=== PATIENT | male | born 1960 | race Caucasian/White ===

== ENCOUNTER 2018-05-06 09:15 | Inpatient (IN) | payer SELFPAY ==
[2018-05-06] MEDS ORDERED: fentaNYL 100 MCG/2 ML INJ IVP ONE (09:58)
--- NOTE | 2018-05-06 10:02 | EDPHY ---
H & P Smoking Status: Current every day smoker Time Seen by Provider: 05/06/18 09:38 HPI/ROS: Clinical Impression: Acute, displaced, angulated, impacted, comminuted, closed, intra-articular distal left femur fracture Assessment/Plan: 58-year-old homeless male presents to the emergency department with acute left knee pain after falling down 3 concrete steps today landing directly on his knee. The patient has intact neurovascular exam, no open wounds. He has obvious swelling and deformity to the knee. X-ray findings consistent with a closed, displaced, angulated, impacted, comminuted, intra-articular distal left femur fracture. No reports of hip or ankle pain and exam of these joints is unremarkable. Patient initially resistant to IV, orthopedic consultation, hospitalization and surgery. He met with Dr. Cory Fortune and agrees to stay in the hospital but is still resistant to surgery. Differential Dx: Differential includes but not limited to Acute fracture, dislocation, ligamentous injury ED Procedures: Procedure: Splint placement. A knee immobilizer splint was applied by pyrotechnics press tender. After application of the splint I returned and re-examined the patient. The splint was adequately immobilizing the joint and distal to the splint the patient's circulation and sensation was intact. ED Course: 10:00 a.m. patient has initially refused IV, orthopedic consultation, admission , and surgery. Despite my review of his x-ray findings with him, patient is insistent on this. He then met with Dr. Wenceslao Fortune. Patient has now agreed to stay in the hospital, would still like to talk to Orthopedics about surgery and is agreeable to pain medication. 10:40 a.m.: Case discussed with Martha from hospitalist service, will assign patient inpatient to Dr. Bolanos service. Still awaiting orthopedic call back. 10:45 a.m.: Case discussed with Dr. Cornejo. He will come to the ED to evaluate the patient. Patient agrees to knee immobilizer and admission. Still does not want surgery. Chief Complaint: Left knee pain HPI: This is a homeless 58-year-old male who presents to the emergency department with acute left knee pain after trying to push a 200 lb cart when it slipped and he fell down 3 concrete steps landing on his left knee. Patient is unable to ambulate. He reports no hip or ankle pain. No open wounds. No reports of numbness or loss of sensation to the leg. No prior leg surgery. He last ate yesterday. He denies drugs and alcohol. He has been sleeping outside. He did not take regular prescription medications and denies allergies. PMH: None reported Pertinent Past Surgical History: No prior orthopedic surgery Social History: Homeless, smoker ROS: All other systems negative Constitutional: No fever, no chills Musculoskeletal: Positive deformity + joint pain Skin: No rashes, color change or open wounds. Neurological: No sensory loss or weakness. Physical Exam: General Appearance: Alert, oriented, appropriate for age, cooperative, NAD, well hydrated, non-toxic appearing, VSS, no hypoxia. Neurological: Alert and oriented x 3, normal sensation. Skin: Warm, dry, no rashes, no nodules on palpation. Musculoskeletal: Significant swelling noted to left knee and distal femur. No open wound. Distal neurovascular exam intact. Range of motion not performed. No reproducible ankle or hip pain. MDM: Patient was seen independently by established practice protocols. Secondary supervising physician at time of evaluation was Dr. Fortune. Diagnosis: Displaced, angulated, impacted, closed, comminuted, intra-articular distal left femur fracture. New, requires workup Summary: See assessment and plan for summary of ED visit Clinical lab tests: ordered / reviewed. Independent visualization of images, tracing, or specimens yes. Discussed patient with another provider Dr. Fortune, who also saw and examined the patient, Dr. Cornejo with Orthopedics Risk of comlications, morbidity, mortality Presenting problem moderate Diagnostic procedures moderate Management Options moderate Patient Progress stable. (Mu Driver) Constitutional: Initial Vital Signs Temperature (C) 36.2 C 05/06/18 09:20 Heart Rate 53 L 05/06/18 09:20 Respiratory Rate 18 05/06/18 09:20 Blood Pressure 138/81 H 05/06/18 09:20 O2 Sat (%) 97 05/06/18 09:20 O2 Delivery Mode Room Air Allergies/Adverse Reactions: No Known Allergies Allergy (Verified 05/06/18 11:19) Home Medications: Medication Instructions Recorded Ibuprofen [Motrin (*)] 200 mg PO DAILY PRN 05/06/18 MDM/Departure - MDM Imaging Results: Imaging Impressions Knee X-Ray 05/06/18 09:22 Impression: Displaced, angulated, impacted and comminuted intra-articular fracture of the distal left femur. Medications Given: Acetaminophen (Tylenol) 1,000 mg PO Q8 [facility] Stop: 11/02/18 13:59 Last Admin: 05/06/18 13:34 Dose: 1,000 mg Cyclobenzaprine HCl (Flexeril) 10 mg PO TID LAUREN Stop: 11/02/18 15:59 Last Admin: 05/06/18 15:08 Dose: 10 mg Lorazepam (Ativan) 0.5 - 1 mg PO Q8HRS PRN PRN Reason: Anxiety, Able to Take PO Stop: 11/02/18 13:10 Last Admin: 05/06/18 15:09 Dose: 0.5 mg Oxycodone HCl (Oxycodone Ir) 5 - 10 mg PO Q3HRS PRN PRN Reason: Pain, Severe Able to Take PO Stop: 05/16/18 13:10 Last Admin: 05/06/18 15:08 Dose: 5 mg Discontinued Medications Fentanyl (Sublimaze) 50 mcg IVP EDNOW ONE Stop: 05/06/18 09:59 Last Admin: 05/06/18 10:11 Dose: 50 mcg Hydromorphone HCl (Dilaudid) 1 mg IVP EDNOW ONE Stop: 05/06/18 11:31 Last Admin: 05/06/18 11:38 Dose: 1 mg Hydromorphone HCl (Dilaudid) 0.2 - 0.4 mg IVP Q4HRS PRN PRN Reason: Pain, Severe Unable to Take PO Stop: 05/16/18 13:10 Last Admin: 05/06/18 13:39 Dose: 0.2 mg Lorazepam (Ativan Injection) 1 mg IVP EDNOW ONE Stop: 05/06/18 11:31 Last Admin: 05/06/18 11:38 Dose: 1 mg ED Course/Re-evaluation: Independent physician evaluation: I evaluated and participated in the management of the patient. I also evaluated the patient independently. My co-signature indicates that I have reviewed this chart and I agree with the findings and plan of care as documented. My personal H&P findings include: The patient presents the ED with left knee pain and swelling following a mechanical fall. The patient denies any headache, neck pain, chest pain, difficulty breathing or other traumatic complaints. Physical exam: General Appearance: Thin male, disheveled Head: Atraumatic Eyes: Pupils equal, round, reactive ENT, Mouth: No hemotympanum, no oral trauma Neck: Nontender, trachea midline Respiratory: No chest wall tender, no subcutaneous air, lungs clear bilaterally Cardiovascular: Regular rate and rhythm Abdomen: Abdomen is soft and nontender, pelvis stable Skin: No lacerations, No abrasion Back: No midline T/L/S pain Extremities: Significant soft tissue swelling and joint effusion noted in the left knee. Neurological: A&Ox3, normal motor function, normal sensory exam ED course: Patient's x-ray does confirm complicated distal femur fracture. The patient has been placed in a knee immobilizer. He received IV narcotic medications. The patient is willing to be admitted to the hospital for orthopedic consultation. He wants to discuss his treatment options with the orthopedic surgeon prior to going to surgery. (Tommie Fortune) - Depart Disposition: [facility] Inpatient Acute
[2018-05-06 10:16] LABS: PLATELET COUNT 189 10^3/uL (150-400)
[2018-05-06] MEDS ORDERED: HYDROmorphONE/DILAUDID 1 MG/ML INJ IVP PRN ×3 (10:56→16:33)
[2018-05-06] MEDS ORDERED: HYDROmorphONE/DILAUDID 1 MG/ML INJ IVP ONE (11:30)
[2018-05-06] MEDS ORDERED: LORazepam 2 MG/ML INJ IVP ONE (11:30)
--- NOTE | 2018-05-06 12:46 | GCON ---
ORTHOPEDIC CONSULTATION DATE OF CONSULTATION: 05/06/2018 REASON FOR CONSULTATION: Intra-articular distal femur fracture on the left knee. HISTORY OF PRESENT ILLNESS: The patient is a 58-year-old, homeless male who fell down about 3 steps earlier today and landed directly onto his left leg. He was brought to the emergency department, cristiano leighroby was refusing any sort of intervention or workup. He finally agreed to an x-ray, which did alon w a distal femur fracture with angulation. I was consulted and saw him down in the emergency room. PHYSICAL EXAM: GENERAL: He is alert and oriented x3. He does answer questions appropriately, altho ugh sometimes he has wandering thoughts. He is somewhat refusing any sort of intervention at this po int. EXTREMITIES: The left leg is flexed slightly. The compartments, both on the thigh and lower e xtremity. Compartments are soft. He has 1+ dorsalis pedis and posterior tibial pulses. He resists any sort of motion at the knee. Ankle does show intact sensation, both on the plantar and dorsal asp ect. 5/5 ankle dorsiflexion and plantar flexion. IMAGING: X-rays 4 views of the knee taken today at [facility] ER were reviewed. They do show an impacted i ntra-articular distal femoral fracture on the left. No other injuries are identified. ASSESSMENT: Left distal femoral fracture. PLAN: The patient and I spent 15 minutes of [id number]-ka-shpe time discussing treatment options. This ne eds to be surgically fixed. There is no great nonoperative options for this injury. He is resistant to any sort of intervention from a surgical standpoint. I did get him to agree to go into a splint to stabilize the fracture. He will get admitted to the hospital service and think about how he would like to proceed. He has agreed to meet with me again tomorrow morning and further discuss possible surgical intervention on this femur, so at this point, he can go ahead and have a diet. Will get him admitted to the hospitalist service, and I will talk with him again tomorrow about surgical interven tion on his femur. /[id number]/MODL
[2018-05-06] MEDS ORDERED: ONDANSETRON DISINTEGRATING 4 MG TAB PO PRN (13:11)
[2018-05-06] MEDS ORDERED: ONDANSETRON 4 MG/2 ML VIAL IVP PRN (13:11)
[2018-05-06] MEDS ORDERED: NS 1,000 ML IV SCH (13:15)
[2018-05-06] MEDS: ACETAMINOPHEN 500 MG TAB PO SCH ×2 (13:34→21:19)
[2018-05-06] MEDS: oxyCODONE IR 5 MG TAB PO PRN ×2 (13:34→15:08)
--- NOTE | 2018-05-06 13:47 | PDMN ---
Medical Necessity Medical necessity: [facility] [place] S740 femur fx 3 days( pend) : pt fell down 3 steps. sgy pend? - pt still deciding, surgical consult complete recommend sgy for this type of fx., displaced, angulated, impacted and comminuted intra- articular fracture of the distal L femur.
--- NOTE | 2018-05-06 14:59 | CPEKG ---
Test Reason : OPEN Blood Pressure : / mmHG Vent. Rate : 063 BPM Atrial Rate : 063 BPM P-R Int : 134 ms QRS Dur : 078 ms QT Int : 413 ms P-R-T Axes : 072 044 070 degrees QTc Int : 423 ms Sinus rhythm Probable left atrial enlargement Confirmed by Matt Babb ([id number]) on 05/06/2018 2:59:46 PM Referred By: Confirmed By:Matt Babb
[2018-05-06] MEDS: CYCLOBENZAPRINE 10 MG TAB PO SCH ×2 (15:08→21:19)
[2018-05-06] MEDS: LORazepam 0.5 MG TAB PO PRN (15:09)
--- NOTE | 2018-05-06 15:28 | GHP ---
DATE OF ADMISSION: 05/06/2018 HISTORY OF PRESENT ILLNESS: The patient is a 58-year-old gentleman with minimal past medical history who presents after mechanical fall and is found to have a distal femur comminuted intra-articular fr acture. When I speak to the patient, he was pushing a shopping cart. It fell down a stair, as he tried to sa ve it, he fell down, landing on his knee, developing excruciating pain. He has been homeless for a few years. Prior to that, he has lived in different places. It sounds li ke he was unable to live with his son any further, which is what led to this. He denies history of e xertional anginal symptoms, exertional chest pain or dyspnea. He does smoke cigarettes. He does not drink alcohol. He does have a history of poor dentition, which he has treated with on elderberry extract or leaves. He has not taken antibiotics. He has not had fever, chills, or jaw pain. In the emergency department, patient is agitated, wanting to leave. I did explain that his fracture needs surgical management and it likely to have a long slow progression to the mortality without repa ir. REVIEW OF SYSTEMS: Complete 10-point review of systems conducted negative, except as noted in the HP I. PAST MEDICAL HISTORY: None. SOCIAL HISTORY: Currently homeless. Previously worked in [employer] and other things. He is a smoke r and denies alcohol or drugs through the needle. FAMILY HISTORY: Reviewed and unremarkable. ALLERGIES: No known drug allergies. HOME MEDICATIONS: None. PHYSICAL EXAMINATION: VITAL SIGNS: Temp 36.2, blood pressure 131/81, pulse 53, breathing 18 times a minute, 97% on room air. GENERAL: In no acute distress. HEENT: Sclerae anicteric. Oropharynx cl ear. He has very poor dentition, but poor, but not rancid odor. NECK: Supple. No lymphadenopathy or JVD. LUNGS: Clear to auscultation bilaterally. HEART: S1, S2. ABDOMEN: Soft, nontender, nond istended. EXTREMITIES: Lower extremities are without edema. His left femur is tender. DIAGNOSTIC DATA: EKG interpreted by me shows sinus at 63 with normal axis and intervals. There is a pseudo ST elevation pattern in I and II without reciprocal changes. Otherwise, there are no ST or T -wave changes. There is no prior for comparison. Knee x-ray, interpreted by me shows comminuted intra-articular left distal femur fracture. Sodium 138, potassium 4.7, chloride 103, bicarb 26, BUN 16, creatinine 0.8, glucose 122. White count 8, hematocrit 45, platelets 189,000. On discussed case Dr. Robby Cornejo, as well as Dr. Tucker of Oral Surgery. ASSESSMENT/PLAN: A 58-year-old gentleman presents with fall, fracture, poor dentition. 1. Preoperative cardiac evaluation. The patient is greater than 4 METS of baseline. No active card iac conditions. His EKG I think is actually not abnormal, but on the I lead, it appears to be there is a [address]-elevation in non-contiguous leads. This is artifact, not ST elevation. 2. He may proceed to the operating room without further workup or intervention. 3. Intra-articular fracture. This needs surgical management with hardware. I discussed this with Andrea Cornejo. Will immobilize it while waiting for surgery. 4. Poor dentition. This represents a source for possible contamination of his soon-to-be installed orthopedic hardware. I will perform a CT of his face with surgery to evaluate for a jaw abscess. He will be seen by Oral Surgery. He does not appear to have an active bloodstream infection at this ti il. 5. Hyperglycemia. This is mild. 6. Prophylaxis. Low molecular heparin. High risk. DISPOSITION: Inpatient status. /[id number]/MODL
[2018-05-06] MEDS ORDERED: IOPAMIDOL (ISOVUE-300) 100 ML BTL ONE (15:32)
--- NOTE | 2018-05-06 19:59 | GCON ---
HISTORY OF PRESENT ILLNESS: Chris is a 58-year-old, homeless male, who fell down 3 steps earlier today and landed directly on his left leg. He was brought to the emergency department and was noted to have a left intra-articular distal femoral fracture. He was admitted to the hospital and is set for possible operative intervention by Orthopedics. The Internal Medicine doctors noted that the patient had multiple teeth with significant dental decay. Dr. Bolanos called me for a consultation regarding the patient's dentition and concern about its possible effect on his orthopedic injuries. PHYSICAL EXAMINATION: GENERAL: The patient is alert and oriented x3, however, he is difficult to have a conversation with because he has wandering thoughts and will not always answer questions clearly. HEAD AND NECK: Intraoral examination reveals poorly maintained generalized dentition with significant dental decay. The patient does have a small spicule of buccal bone protruding adjacent to tooth #10. Otherwise, there are no obvious signs of acute infection or abscess. The patient denies any acute pain associated with his teeth at this time. RADIOGRAPHS: CT scan demonstrates multiple periapical radiolucencies associated with his maxillary mandibular dentition. The radiologist also noted a possible subperiosteal abscess associated with tooth #10, but this is actually a spicule of the buccal bone which is protruding through the buccal mucosa and is not an abscess. ASSESSMENT AND PLAN: Chris is a 58-year-old, homeless male with poorly maintained dentition and a left distal femoral fracture. I do not believe that his dentition will affect the orthopedic repair of his fracture because there is no obvious acute abscess. The patient will eventually require extraction of his remaining dentition due to poor long-term oral care. The patient's orthopedic surgeon is Dr. Cornejo. If he has any questions, I would like him to contact me. My cell phone number is [phone]. The office phone number is [phone]. /[id number]/MODL MTDD
[2018-05-07] MEDS: ACETAMINOPHEN 500 MG TAB PO SCH ×3 (05:35→22:28)
--- NOTE | 2018-05-07 07:29 | SOAPPROG ---
LUDIN Progress Note Assessment/Plan: Assessment: Plan: 05/07/18 07:26 Lt intraartic distal femur fx appreciate oral surgery recs patient still refusing surgical intervention refusing knee immobilizer consider behavioral consult Subjective: pain better Objective: skin intact thigh comp soft 2+ dp/tp pulses Vital Signs Temp Pulse Resp BP Pulse Ox 37.2 C 85 16 115/74 94 05/06/18 23:51 05/06/18 23:51 05/06/18 23:51 05/06/18 23:51 05/06/18 23:51 05/06/18 05/07/18 05/08/18 05:59 05:59 05:59 Intake Total 530 Output Total 750 Balance -220 ICD10 Worksheet Patient Problems: Problems Problem Status Onset Femoral distal fracture Acute - ICD10 Problem Qualifiers (1) Femoral distal fracture Qualifiers: Encounter type: initial encounter Fracture type: closed Fracture morphology: other fracture Laterality: left Qualified Code(s): S72.492A - Other fracture of lower end of left femur, initial encounter for closed fracture
[2018-05-07] MEDS ORDERED: NICOTINE POLACRILEX 2 MG GUM B PRN (09:00)
--- NOTE | 2018-05-07 09:00 | HOSPPROG ---
Hospitalist Progress Note Assessment/Plan: 58 yo M w comminuted distal femur fracture and poor dentition refusing operative repair femur fracture: needs surgery knee immobilizer until then BH: refusing surgery he believes "it will heal on its own" and has distrust of surgery defiant when logic challenged as he a closed [place] of emotion based decision making and will not incorporate information that conflicts w his views this is unlikely to change w any degree of evaluation/discussion he does accept knee immobilizer, halfway care, which is definitely an inferior treatment option w risk of morbidity and mortality he denies this to be true will have nazanin valdivia see him, not optimistic it will be helpful i believe he has capacity to make decisions, they are just unwise decisions with regards to health outcomes poor dentition: ct w no abscess seen by oral surgery (appreciated) no contraindication to ortho hardware smoking: irate that he cannot smoke nicotine patch and gum proph: lmwh Subjective: angry. refusing surgery. case d/w dr lazo Objective: Vital Signs Temp Pulse Resp BP Pulse Ox 36.7 C 88 12 115/74 95 05/07/18 08:00 05/07/18 08:00 05/07/18 08:00 05/07/18 08:00 05/07/18 08:00 05/06/18 05/07/18 05/08/18 05:59 05:59 05:59 Intake Total 530 Output Total 750 Balance -220 - Physical Exam Constitutional: no apparent distress, appears nourished Eyes: PERRL, anicteric sclera Ears, Nose, Mouth, Throat: moist mucous membranes, hearing normal Cardiovascular: regular rate and rhythym, no murmur, rub, or gallop Respiratory: no respiratory distress, no rales or rhonchi Gastrointestinal: normoactive bowel sounds, soft, non-tender abdomen Genitourinary: no bladder fullness, No miller in urethra Skin: warm, normal color Musculoskeletal: No full muscle strength Neurologic: AAOx3 Psychiatric: No interacting appropriately ICD10 Worksheet Patient Problems: Problems Problem Status Onset Femoral distal fracture Acute
[2018-05-07] MEDS: oxyCODONE IR 5 MG TAB PO PRN ×3 (09:31→17:41)
[2018-05-07] MEDS: CYCLOBENZAPRINE 10 MG TAB PO SCH ×3 (09:32→22:28)
[2018-05-07] MEDS: ENOXAPARIN 40 MG/0.4 ML SYR SC SCH (09:34)
[2018-05-07] MEDS: NICOTINE 21 MG/24 HR PATCH TD SCH (09:38)
--- NOTE | 2018-05-07 15:54 | ASMTCMCOM ---
CM Note CM Note Notes: Pt who is homeless has femur fx after fall. Pt declining surgery which ortho recommends needs surgery. Pt currently self-pay, [employer] attempted to screen pt for Medicaid and he declined signing the paperwork. PATIENT SERVICES CLERK eval order in. documents pt has capacity to make decisions. [facility] consult with Shirley Lyons pending. Pt has no prior [facility] admissions. Pt reports he has no friends/family anywhere because "they are all killers." Pt reports his d/c plan is to heal for one week and then be able to be on crutches. Pt verbalizes his femur fx will heal on its own, he has healed himself before. Pt is really wanting to smoke a cigarette. Pt reports he has been living on the porch of a "fish store," has not been to the [facility]. Date Signed: 05/07/2018 03:53 PM Electronically Signed By:BOYD Morgan
[2018-05-08] MEDS: ACETAMINOPHEN 500 MG TAB PO SCH ×3 (05:27→22:51)
[2018-05-08] MEDS ORDERED: BISACODYL 10 MG SUPP PR PRN (08:27)
[2018-05-08] MEDS ORDERED: MAGNESIUM HYDROXIDE 30 ML UDCUP PO PRN (08:27)
[2018-05-08] MEDS ORDERED: LACTULOSE 20 GM/30 ML UDCUP PO PRN (08:27)
[2018-05-08] MEDS: oxyCODONE IR 5 MG TAB PO PRN ×4 (08:36→22:52)
[2018-05-08] MEDS: CYCLOBENZAPRINE 10 MG TAB PO SCH ×3 (08:36→22:51)
[2018-05-08] MEDS: ENOXAPARIN 40 MG/0.4 ML SYR SC SCH (08:36)
[2018-05-08] MEDS: NICOTINE 21 MG/24 HR PATCH TD SCH (10:38)
[2018-05-08] MEDS: SENNOSIDES/DOCUSATE SODIUM TAB PO SCH ×2 (12:55→22:51)
--- NOTE | 2018-05-08 15:44 | HOSPPROG ---
Hospitalist Progress Note Assessment/Plan: 58 yo M w comminuted distal femur fracture and poor dentition refusing operative repair femur fracture: knee immobilizer order, PT/OT, CM consulted BH: refusing surgery he believes "it will heal on its own" and has distrust of surgery defiant when logic challenged as he a closed koi of emotion based decision making and will not incorporate information that conflicts w his views this is unlikely to change w any degree of evaluation/discussion he does accept knee immobilizer, longterm care, which is definitely an inferior treatment option w risk of morbidity and mortality he denies this to be true i believe he has capacity to make decisions, they are just unwise decisions with regards to health outcomes poor dentition: ct w no abscess seen by oral surgery (appreciated) no contraindication to ortho hardware smoking: irate that he cannot smoke nicotine patch and gum proph: lmwh Subjective: Patient reports pain in L lower extremity Objective: Vital Signs Temp Pulse Resp BP Pulse Ox 36.2 C 103 H 14 109/78 88 L 05/08/18 08:00 05/08/18 13:01 05/08/18 13:01 05/08/18 13:01 05/08/18 13:01 05/07/18 05/08/18 05/09/18 05:59 05:59 05:59 Intake Total 530 1450 Output Total 750 325 Balance -220 1125 - Physical Exam Constitutional: unkempt Eyes: PERRL Ears, Nose, Mouth, Throat: moist mucous membranes Cardiovascular: regular rate and rhythym Respiratory: no respiratory distress Gastrointestinal: soft, non-tender abdomen Genitourinary: No miller in urethra Musculoskeletal: pain with ROM Neurologic: AAOx3 Psychiatric: interacting appropriately, poor insight, poor judgement ICD10 Worksheet Patient Problems: Problems Problem Status Onset Femoral distal fracture Acute
[2018-05-08] MEDS: LORazepam 0.5 MG TAB PO PRN (17:15)
[2018-05-09] MEDS: ACETAMINOPHEN 500 MG TAB PO SCH ×3 (06:37→22:06)
[2018-05-09] MEDS: CYCLOBENZAPRINE 10 MG TAB PO SCH ×3 (09:06→22:06)
[2018-05-09] MEDS: ENOXAPARIN 40 MG/0.4 ML SYR SC SCH ×2 (09:06→11:10)
[2018-05-09] MEDS: oxyCODONE IR 5 MG TAB PO PRN ×4 (09:07→22:06)
[2018-05-09] MEDS: NICOTINE 21 MG/24 HR PATCH TD SCH (10:12)
[2018-05-09] MEDS: SENNOSIDES/DOCUSATE SODIUM TAB PO SCH ×2 (10:21→22:05)
--- NOTE | 2018-05-09 13:06 | HOSPPROG ---
Hospitalist Progress Note Assessment/Plan: 58 yo M w comminuted distal femur fracture and poor dentition refusing operative repair femur fracture: knee immobilizer order, PT/OT, CM consulted BH: refusing surgery he believes "it will heal on its own" and has distrust of surgery defiant when logic challenged as he a closed [place] of emotion based decision making and will not incorporate information that conflicts w his views this is unlikely to change w any degree of evaluation/discussion he does accept knee immobilizer, long-term care, which is definitely an inferior treatment option w risk of morbidity and mortality he denies this to be true i believe he has capacity to make decisions, they are just unwise decisions with regards to health outcomes Rediscussed with patient this morning and showed him XR again, he said he will reconsider this afternoon poor dentition: ct w no abscess seen by oral surgery (appreciated) no contraindication to ortho hardware smoking: irate that he cannot smoke nicotine patch and gum proph: lmwh, patient has been refusing Subjective: Patient reports pain in LLE this morning Objective: Vital Signs Temp Pulse Resp BP Pulse Ox 36.7 C 88 16 126/66 H 90 L 05/09/18 11:44 05/09/18 11:44 05/09/18 11:44 05/09/18 11:44 05/09/18 11:44 05/08/18 05/09/18 05/10/18 05:59 05:59 05:59 Intake Total 1450 500 550 Output Total 325 550 Balance 1125 -50 550 - Physical Exam Constitutional: no apparent distress, unkempt Eyes: PERRL Ears, Nose, Mouth, Throat: moist mucous membranes Cardiovascular: regular rate and rhythym Respiratory: no respiratory distress Gastrointestinal: soft, non-tender abdomen Genitourinary: no bladder tenderness Skin: warm Musculoskeletal: pain with ROM Neurologic: AAOx3 Psychiatric: poor insight, poor judgement ICD10 Worksheet Patient Problems: Problems Problem Status Onset Femoral distal fracture Acute
--- NOTE | 2018-05-09 14:18 | SOAPPROG ---
LUDIN Progress Note Assessment/Plan: Assessment: Plan: 05/07/18 07:26 Lt intraartic distal femur fx appreciate oral surgery recs patient still refusing surgical intervention refusing knee immobilizer consider behavioral consult 05/09/18 14:14 Distal femur fx I rec operative intervention, however patient refusing at this point. I explained to him that without surgery he will heal this most likely in a malunited position compromising the intermediate accountant function of his knee and most likely making it difficult for him to walk in the future. He verbalizes that he understands this but does not want surgery. Cont knee immobilizer to stabilize fx and prevent knee flexion contracture NWB at least 8 weeks based on f/u xrays Placement? Subjective: pain better in immobilizer still does not want surgical intervention Objective: wearing immobilizer, fitting appropriately compartments soft 1+ dp/tp pulses 5/5 df/pf Vital Signs Temp Pulse Resp BP Pulse Ox 36.7 C 88 16 126/66 H 90 L 05/09/18 11:44 05/09/18 11:44 05/09/18 11:44 05/09/18 11:44 05/09/18 11:44 05/08/18 05/09/18 05/10/18 05:59 05:59 05:59 Intake Total 1450 500 550 Output Total 325 550 Balance 1125 -50 550 ICD10 Worksheet Patient Problems: Problems Problem Status Onset Femoral distal fracture Acute - ICD10 Problem Qualifiers (1) Femoral distal fracture Qualifiers: Encounter type: initial encounter Fracture type: closed Fracture morphology: other fracture Laterality: left Qualified Code(s): S72.492A - Other fracture of lower end of left femur, initial encounter for closed fracture
[2018-05-10] MEDS: NICOTINE 21 MG/24 HR PATCH TD SCH (10:29)
[2018-05-10] MEDS: SENNOSIDES/DOCUSATE SODIUM TAB PO SCH ×2 (10:29→21:56)
[2018-05-10] MEDS: CYCLOBENZAPRINE 10 MG TAB PO SCH ×3 (10:29→21:56)
[2018-05-10] MEDS: ENOXAPARIN 40 MG/0.4 ML SYR SC SCH (10:30)
[2018-05-10] MEDS: ACETAMINOPHEN 500 MG TAB PO SCH ×3 (10:42→21:56)
--- NOTE | 2018-05-10 11:17 | ASMTCMCOM ---
CM Note CM Note Notes: Late yesterday CARY Tapia met with pt and pt verbalized agreement to surgery Saturday. At the time CM left yesterday MARYELLEN Mayfield was helping to see when surgery could be scheduled. Pt did sign the Medicaid application forms, [employer] alerted by email and will picking tech Saturday. Today Hospitalist Ajith reports pt again is declining surgery. Pt will likely d/c to hotel respite if approved by CM management with wc and walker, Meals on Wheels and maybe HHC. WC with elevated leg rest still needs to be located. CM to follow. Date Signed: 05/10/2018 11:16 AM Electronically Signed By:BOYD Morgan
--- NOTE | 2018-05-10 11:20 | HOSPPROG ---
Hospitalist Progress Note Assessment/Plan: 58 yo M w comminuted distal femur fracture and poor dentition refusing operative repair femur fracture: knee immobilizer order, PT/OT, CM consulted BH: refusing surgery he believes "it will heal on its own" and has distrust of surgery defiant when logic challenged as he a closed bishop paiute of emotion based decision making and will not incorporate information that conflicts w his views this is unlikely to change w any degree of evaluation/discussion he does accept knee immobilizer, [facility] care, which is definitely an inferior treatment option w risk of morbidity and mortality he denies this to be true i believe he has capacity to make decisions, they are just unwise decisions with regards to health outcomes Rediscussed with patient this morning, continues to refuse Discussed case with Dr. Duke, psychiatry yesterday, she recommends integrative and spiritual care consults poor dentition: ct w no abscess seen by oral surgery (appreciated) no contraindication to ortho hardware smoking: irate that he cannot smoke nicotine patch and gum proph: lmwh, patient has been refusing Dispo: CM working on possible placement Subjective: Discussed with patient about risks and benefits of surgery this morning, he continues to refuse intervention at this time Objective: Vital Signs Temp Pulse Resp BP Pulse Ox 36.3 C 94 16 111/70 94 05/10/18 07:52 05/10/18 07:52 05/10/18 07:52 05/10/18 07:52 05/10/18 07:52 05/09/18 05/10/18 05/11/18 05:59 05:59 05:59 Intake Total 500 1250 Output Total 550 1350 Balance -50 -100 - Physical Exam Constitutional: unkempt Eyes: PERRL Ears, Nose, Mouth, Throat: moist mucous membranes Cardiovascular: regular rate and rhythym Respiratory: no respiratory distress Gastrointestinal: normoactive bowel sounds Genitourinary: No miller in urethra Skin: normal color Musculoskeletal: pain with ROM Neurologic: AAOx3 Psychiatric: poor insight, poor judgement ICD10 Worksheet Patient Problems: Problems Problem Status Onset Femoral distal fracture Acute
--- NOTE | 2018-05-10 12:26 | SOAPPROG ---
LUDIN Progress Note Assessment/Plan: Assessment: Plan: 05/07/18 07:26 Lt intraartic distal femur fx appreciate oral surgery recs patient still refusing surgical intervention refusing knee immobilizer consider behavioral consult 05/09/18 14:14 Distal femur fx I rec operative intervention, however patient refusing at this point. I explained to him that without surgery he will heal this most likely in a malunited position compromising the residential function of his knee and most likely making it difficult for him to walk in the future. He verbalizes that he understands this but does not want surgery. Cont knee immobilizer to stabilize fx and prevent knee flexion contracture NWB at least 8 weeks based on f/u xrays Placement? 05/10/18 12:21 I spent 15 mins of face to face time reviewing his decision to opt for non op treatment, including possible non union, malunion, terminal operations supervisor consequence of impaired mobility with LLE, he voices understanding of this decision. He is a very poor surgical candidate because of his inability to make and follow through with a decision. He is at high risk for post op complications especially infection due to his inability to follow through with recommendations My recommendation is to treat this fx non operatively in a knee immobilizer. Surgery has been cancelled for Saturday I am signing off on this patient at this time Subjective: Patient had agreed to surgery last night I scheduled him for surgery Saturday am he is now refusing Objective: wearing immobilizer 1+ dp/tp pulses compartments soft Vital Signs Temp Pulse Resp BP Pulse Ox 36.3 C 94 16 111/70 94 05/10/18 07:52 05/10/18 07:52 05/10/18 07:52 05/10/18 07:52 05/10/18 07:52 05/09/18 05/10/18 05/11/18 05:59 05:59 05:59 Intake Total 500 1250 Output Total 550 1350 Balance -50 -100 ICD10 Worksheet Patient Problems: Problems Problem Status Onset Femoral distal fracture Acute - ICD10 Problem Qualifiers (1) Femoral distal fracture Qualifiers: Encounter type: initial encounter Fracture type: closed Fracture morphology: other fracture Laterality: left Qualified Code(s): S72.492A - Other fracture of lower end of left femur, initial encounter for closed fracture
[2018-05-11] MEDS: ACETAMINOPHEN 500 MG TAB PO SCH ×2 (05:57→14:06)
[2018-05-11] MEDS: SENNOSIDES/DOCUSATE SODIUM TAB PO SCH (08:49)
[2018-05-11] MEDS: CYCLOBENZAPRINE 10 MG TAB PO SCH ×2 (08:50→17:00)
--- NOTE | 2018-05-11 12:04 | HOSPPROG ---
Hospitalist Progress Note Assessment/Plan: 58 yo M w comminuted distal femur fracture and poor dentition refusing operative repair femur fracture: knee immobilizer order, PT/OT, CM consulted, see below BH: was previously refusing surgery, patient has changed his mind as of this morning that he would like to proceed with surgical intervention, I will contact ortho this morning, NPO after midnight for possible OR in the AM poor dentition: ct w no abscess seen by oral surgery (appreciated) no contraindication to ortho hardware smoking: irate that he cannot smoke nicotine patch and gum proph: lmwh, patient has been refusing Dispo: Pending clinical course Subjective: Patient reports pain in LLE this AM Objective: Vital Signs Temp Pulse Resp BP Pulse Ox 37.1 C 85 16 96/67 L 94 05/11/18 08:00 05/11/18 08:00 05/11/18 08:00 05/11/18 08:00 05/11/18 08:00 05/10/18 05/11/18 05/12/18 05:59 05:59 05:59 Intake Total 1250 950 Output Total 1350 1450 Balance -100 -500 - Physical Exam Constitutional: no apparent distress, unkempt Eyes: PERRL Ears, Nose, Mouth, Throat: moist mucous membranes Cardiovascular: regular rate and rhythym Respiratory: no respiratory distress Gastrointestinal: soft, non-tender abdomen Genitourinary: No miller in urethra Skin: warm Musculoskeletal: pain with ROM Neurologic: AAOx3 Psychiatric: interacting appropriately ICD10 Worksheet Patient Problems: Problems Problem Status Onset Femoral distal fracture Acute
[2018-05-11] MEDS: ENOXAPARIN 40 MG/0.4 ML SYR SC SCH (12:19)
[2018-05-11] MEDS: NICOTINE 21 MG/24 HR PATCH TD SCH (12:19)
--- NOTE | 2018-05-11 15:21 | GCON ---
REFERRING PHYSICIAN: Oli Canseco DO HISTORY OF PRESENT ILLNESS: The patient is a pleasant 58-year-old gentleman who sustained a left dis constanza femur fracture. He was known to my partner, Dr. Robby Cornejo and had been planned for an operat ion earlier today. However, the patient has been somewhat difficult with the decision making and ref used an operation this morning. Since then, he has come around to feeling that he would benefit from operation. PHYSICAL EXAM: His left lower extremity shortened. Skin is grossly clean, dry, and intact. There is swelling about the knee. IMAGING: I reviewed the images. They demonstrate a telescoped and shortened distal femur fracture w ith an intercondylar split. IMPRESSION: Left distal femur fracture extending into the knee joint with substantial shortening. ASSESSMENT AND PLAN: I had a long discussion with the patient. I think the best recovery for him ul meccaately is going to be an open reduction and internal fixation. Obviously, the patient has a lot of social problems and will take that into consideration. He will have to be nonweightbearing on the l eft lower extremity for about 6 weeks. The patient has been n.p.o. since 8:00 this morning. We will move forward with operative planning for this evening. /[id number]/MODL
[2018-05-11] MEDS ORDERED: TRANEXAMIC ACID 1,000 MG in NS 100 ML IV ONE (18:59)
[2018-05-11] MEDS ORDERED: ceFAZolin 2 GM/DEXTROSE 100 ML IV ONE (19:00)
[2018-05-11] MEDS ORDERED: CEFAZOLIN 2 GM/DEXTROSE/100 ML BAG IV ONE (19:01)
[2018-05-11] MEDS ORDERED: MIDAZOLAM 2 MG/2 ML VIAL IVP ONE (19:12)
--- NOTE | 2018-05-11 19:14 | PDANEPAE ---
ANE History of Present Illness orif femur ANE Past Medical History - Cardiovascular History Hx Hypertension: No Hx Arrhythmias: No Hx Chest Pain: No Hx Coronary Artery / Peripheral Vascular Disease: No Hx CHF / Valvular Disease: No Hx Palpitations: No - Pulmonary History Hx COPD: No Hx Asthma/Reactive Airway Disease: No Hx Recent Upper Respiratory Infection: No Hx Oxygen in Use at Home: No Hx Sleep Apnea: No Sleep Apnea Screening Result - Last Documented: Negative - Neurologic History Hx Cerebrovascular Accident: No Hx Seizures: No Hx Dementia: No - Endocrine History Hx Diabetes: No Hypothyroid: No Hyperthyroid: No Obesity: no - Renal History Hx Renal Disorders: No - Liver History Hx Hepatic Disorders: No - Neurological & Psychiatric Hx Hx Neurological and Psychiatric Disorders: No ANE Review of Systems Review of Systems: - Exercise capacity Exercise capacity: >=4 METS ANE Patient History - Allergies Allergies/Adverse Reactions: No Known Allergies Allergy (Verified 05/06/18 11:19) - Home Medications Home medications: home medication list seen and reviewed Home Medications: Ibuprofen [Motrin (*)] 200 mg PO DAILY PRN 05/06/18 [Last Taken Unknown] - NPO status NPO Status: no food or drink >8 hours NPO Since - Liquids (Date): 05/11/18 NPO Since - Liquids (Time): 13:45 NPO Since - Solids (Date): 05/11/18 NPO Since - Solids (Time): 10:00 - Anes Hx Anes Hx: no prior problems Hx Anesthesia Complications (with details): no prior anesthetics - Smoking Hx Smoking Status: Current every day smoker ANE Labs/Vital Signs - Labs Result Diagrams: 05/06/18 10:03 05/06/18 10:03 - Vital Signs Blood Pressure: 126/70 Heart Rate: 89 Respiratory Rate: 16 O2 Sat (%): 95 Height: 175.26 cm Weight: 58.967 kg ANE Physical Exam - Airway Mallampati Score: Class 2 Mouth exam: poor dentition - Pulmonary Pulmonary: no respiratory distress - Cardiovascular Cardiovascular: regular rate and rhythym - ASA Status ASA Status: II ANE Anesthesia Plan Anesthesia Plan: general endotracheal anesthesia
[2018-05-11] MEDS ORDERED: SUCCINYLCHOLINE CHLORIDE 200 MG/10 ML SYR IVP ONE (19:16)
[2018-05-11] MEDS ORDERED: ONDANSETRON 4 MG/2 ML VIAL ONE (19:17)
[2018-05-11] MEDS ORDERED: KETOROLAC 30 MG/1 ML SDV ONE (19:17)
[2018-05-11] MEDS ORDERED: DEXAMETHASONE 4 MG/ML VIAL ONE (19:17)
[2018-05-11] MEDS ORDERED: LIDOCAINE 2% 5 ML SDV ONE (19:17)
[2018-05-11] MEDS ORDERED: ROCURONIUM 50 MG/5 ML VIAL ONE ×3 (19:17→21:54)
[2018-05-11] MEDS ORDERED: fentaNYL 100 MCG/2 ML INJ ONE (19:18)
[2018-05-11] MEDS ORDERED: PROPOFOL 200 MG/20 ML VIAL ONE (19:18)
[2018-05-11] MEDS ORDERED: VANCOMYCIN 1 GM VIAL ONE (19:32)
[2018-05-11] MEDS ORDERED: BUPIVACAINE 0.5% 30 ML SDV ONE (19:32)
[2018-05-11] MEDS ORDERED: BUPIVACAINE/EPI 0.5% 30 ML SDV ONE (19:46)
[2018-05-11] MEDS ORDERED: LABETALOL HCL 5 MG/ML 20 ML MDV ONE (19:54)
[2018-05-11] MEDS ORDERED: SUGAMMADEX SODIUM 200 MG/2 ML VIAL IVP ONE (22:22)
[2018-05-11] MEDS ORDERED: METOPROLOL TARTRATE 5 MG/5 ML INJ ONE (22:36)
[2018-05-11] MEDS ORDERED: HYDROmorphONE/DILAUDID 2 MG/ML INJ ONE (22:46)
--- NOTE | 2018-05-11 23:01 | POSTANESTH ---
Post Anesthetic Evaluation Cardiovascular Status: Normal, Stable Respiratory Status: Normal, Stable Level of Consciousness/Mental Status: Can Participate in Eval Pain Control: Adequate, Prn Tx Ordered Nausea/Vomiting Control: Adequate, Prn Tx Ordered Complications Possibly Related to Anesthesia: None Noted
[2018-05-11] MEDS ORDERED: NALOXONE HCL 0.4 MG/ML INJ IVP PRN (23:02)
[2018-05-11] MEDS ORDERED: NS 500 ML IV PRN (23:02)
[2018-05-11] MEDS ORDERED: ALBUTEROL 3 ML DEYVIAL IH PRN (23:02)
[2018-05-11] MEDS ORDERED: ONDANSETRON 4 MG/2 ML VIAL IVP PRN (23:02)
[2018-05-11] MEDS ORDERED: HYDROmorphONE/DILAUDID 2 MG/ML INJ IVP PRN (23:02)
[2018-05-11] MEDS ORDERED: LORazepam 2 MG/ML INJ ONE (23:24)
[2018-05-11] MEDS ORDERED: LORazepam 2 MG/ML INJ IV PRN (23:28)
[2018-05-12] MEDS: SENNOSIDES/DOCUSATE SODIUM TAB PO SCH ×3 (00:03→23:03)
[2018-05-12] MEDS: CYCLOBENZAPRINE 10 MG TAB PO SCH ×4 (00:04→21:36)
[2018-05-12] MEDS: ACETAMINOPHEN 500 MG TAB PO SCH ×4 (00:04→21:36)
[2018-05-12] MEDS: NICOTINE 21 MG/24 HR PATCH TD SCH (05:36)
[2018-05-12] MEDS: oxyCODONE IR 5 MG TAB PO PRN ×4 (09:40→21:37)
--- NOTE | 2018-05-12 11:03 | ASMTCMCOM ---
CM Note CM Note Notes: Pt had surgery for femur fx yesterday. Pt to be NWB for 6 weeks. Today pt is open to 30 day Medicaid SNF stay. Pt signed ULTC 100 and it was faxed to [facility]. [facility] Data alerted for LTC Medicaid cha. Referrals sent to SNFs in [employer]. Placement likely will be a challenge due to Medicaid pending status. CM to follow. Date Signed: 05/12/2018 11:02 AM Electronically Signed By:BOYD Morgan
--- NOTE | 2018-05-12 12:15 | HOSPPROG ---
Hospitalist Progress Note Assessment/Plan: 58 yo M w comminuted distal femur fracture and poor dentition refusing operative repair femur fracture: was originally refusing surgery, changed his mind yesterday, underwent ORIF on 05/11, PT/OT, pain medications poor dentition: ct w no abscess seen by oral surgery (appreciated) no contraindication to ortho hardware smoking: irate that he cannot smoke nicotine patch and gum proph: lmwh Dispo: Pending clinical course, CM working on SNF placement Subjective: Pateint reports pain in LE today Objective: Vital Signs Temp Pulse Resp BP Pulse Ox 36.8 C 103 H 12 112/67 99 05/12/18 12:06 05/12/18 12:06 05/12/18 12:06 05/12/18 12:06 05/12/18 12:06 05/11/18 05/12/18 05/13/18 05:59 05:59 05:59 Intake Total 950 1900 Output Total 1450 925 Balance -500 975 - Physical Exam Constitutional: no apparent distress, unkempt Eyes: PERRL Ears, Nose, Mouth, Throat: moist mucous membranes Cardiovascular: regular rate and rhythym Respiratory: no respiratory distress Gastrointestinal: soft, non-tender abdomen Skin: warm Musculoskeletal: pain with ROM Neurologic: AAOx3 Psychiatric: poor insight, poor judgement ICD10 Worksheet Patient Problems: Problems Problem Status Onset Femoral distal fracture Acute
--- NOTE | 2018-05-12 18:35 | GPROG ---
I touched base with Chris's nurse and I had a long discussion about his care. Overall, he is having s ome mental status issues, which seem to be the patient's baseline. I do think that he is still again cognizant and aware of the surgery as well as risks preceding it. He is otherwise doing quite well. He has progressed nonweightbearing in physical therapy. Moving forward, we will progress in the physical therapy, nonweightbearing. From my perspective, he can be discharged whenever he is cleared from the medicine service. I am happy to see the patient 2 weeks after the operation, and we will certainly do our best to keep in touch with the patient as thi s is going to be a challenge moving forward given his social situation. /[id number]/MODL
[2018-05-13] MEDS: oxyCODONE IR 5 MG TAB PO PRN ×6 (03:13→21:54)
[2018-05-13] MEDS: ACETAMINOPHEN 500 MG TAB PO SCH ×3 (06:13→21:54)
[2018-05-13] MEDS: HYDROmorphONE/DILAUDID 2 MG/ML INJ IVP PRN ×2 (08:42→15:52)
[2018-05-13] MEDS: CYCLOBENZAPRINE 10 MG TAB PO SCH ×3 (08:44→21:54)
[2018-05-13] MEDS: SENNOSIDES/DOCUSATE SODIUM TAB PO SCH ×2 (08:44→19:55)
[2018-05-13] MEDS: ENOXAPARIN 40 MG/0.4 ML SYR SC SCH (08:46)
[2018-05-13] MEDS: NICOTINE 21 MG/24 HR PATCH TD SCH (09:48)
--- NOTE | 2018-05-13 10:01 | HOSPPROG ---
Hospitalist Progress Note Objective: Vital Signs Temp Pulse Resp BP Pulse Ox 36.8 C 89 14 116/68 91 L 05/13/18 08:00 05/13/18 08:00 05/13/18 08:00 05/13/18 08:00 05/13/18 08:00 05/12/18 05/13/18 05/14/18 05:59 05:59 05:59 Intake Total 1900 700 Output Total 925 1200 Balance 975 -500 ICD10 Worksheet Patient Problems: Problems Problem Status Onset Femoral distal fracture Acute
--- NOTE | 2018-05-13 14:57 | ASMTCMCOM ---
CM Note CM Note Notes: Many SNF declines in [employer]. [facility], [facility] and [facility] have expressed interest, they all need to see if pt PASRR will trigger level 2 and a barrier could be pt lack of SNF d/c plan. [facility] should eval by close of business or early then we may know about the PASRR. CM to follow. Date Signed: 05/13/2018 02:56 PM Electronically Signed By:BOYD Morgan
--- NOTE | 2018-05-13 17:53 | SOAPPROG ---
SOAP Progress Note Assessment/Plan: Assessment: pt seen and evaluated at bedside today reports impoved pain control LLE leg lengths equal with same rotation dssg c/d/i, left in place. Plan: d/c when appropriate per medicine LLE NWB f/u with me in 2 wks for staple removal. dvt ppx per primary team. thank you for care coordination. pls don't hesitate to contact me with questions : [phone] 05/13/18 17:51 Objective: Vital Signs Temp Pulse Resp BP Pulse Ox 37.2 C 94 16 106/75 95 05/13/18 16:00 05/13/18 16:00 05/13/18 16:00 05/13/18 16:00 05/13/18 16:00 05/12/18 05/13/18 05/14/18 05:59 05:59 05:59 Intake Total 1900 700 Output Total 925 1200 600 Balance 975 -500 -600 ICD10 Worksheet Patient Problems: Problems Problem Status Onset Femoral distal fracture Acute
--- NOTE | 2018-05-13 19:56 | HOSPPROG ---
Hospitalist Progress Note Assessment/Plan: The patient is a 58-year-old male with PMH smoking, dental disease who was admitted for acute left femur fracture. This patient is new to me. Reviewed patient's chart/records for this visit. ASSESSMENT/PLAN: Acute left femur fracture, status post ORIF 05/11 -PT/OT/ISU. -NWB LLE -pending Rehab placement. Tobaco dependence -nicotine patch/gum. Dental caries -No abscess appreciated by oral surgeon, who had been consulted prior to surgery. -Recommend outpt FU for this, likely needs dental extractions. VTE prophylaxis: Lovenox Code Status: Full code Status: Inpatient for greater than 2 midnight stay. Disposition: [facility] with discharge anticipated by the end of this week. ____ SUBJECTIVE: Patient has no new complaints. +pain in left lower extremity. OBJECTIVE: Physical Exam: General: The patient is a male who is alert and in no acute distress. HEENT: normocephalic, extraocular movements intact, conjunctivae clear. Mucous membranes moist. Missing multiple teeth. Poor dentition noted. Neck: trachea midline, no visible masses. Resp: unlabored. Abd: Nondistended. Musculoskeletal: Normal muscle tone/bulk. Neuro: cranial nerves II XII grossly intact. Intact gross motor and sensory function. Psych: Appropriate mood and appropriate affect. Skin: Mild pallor. No petechiae. Heme/lymph: + 1 pitting peripheral edema at left lower extremity pretibial. No pitting edema right lower extremity. Labs/Imaging/Other Tests: Personally reviewed/interpreted. Objective: Vital Signs Temp Pulse Resp BP Pulse Ox 37.2 C 94 16 106/75 95 05/13/18 16:00 05/13/18 16:00 05/13/18 16:00 05/13/18 16:00 05/13/18 16:00 05/12/18 05/13/18 05/14/18 05:59 05:59 05:59 Intake Total 1900 700 Output Total 922 1200 900 Balance 975 -500 -900 - Time Spent With Patient Time Spent with Patient: greater than 35 minutes Time Spent with Patient: Greater than 35 minutes spent on this patients care, greater than 50% of time spent counseling, educating, and coordinating care regarding the above mentioned plan. ICD10 Worksheet Patient Problems: Problems Problem Status Onset Femoral distal fracture Acute
--- NOTE | 2018-05-13 23:18 | GOP ---
DATE OF OPERATION: 05/12/2018 SURGEON: Harpreet Cook MD VBA PROGRAMMER: Osman Mitchell, ANTONINOA, LSA. ANESTHESIA: General. PREOPERATIVE DIAGNOSIS: Left distal femur fracture. POSTOPERATIVE DIAGNOSIS: Left distal femur fracture. PROCEDURE PERFORMED: Left distal femur open reduction and internal fixation. FINDINGS: SPECIMENS: None. ESTIMATED BLOOD LOSS: 300 cc. INDICATIONS: The patient is a pleasant 58-year-old gentleman who sustained a fracture about a week a go. Of note, he is homeless and has a difficult social situation and has been refusing surgery for a bout a week. At this point he has come around to the idea of needing an operation as he understands he cannot walk on this and has seen the x-rays for the fracture. DESCRIPTION OF PROCEDURE: Pre-surgical, a surgical time-out was performed and all parties involved w ere in agreement on the surgery to be performed. Everyone was in agreement. The patient was then po sitioned on a fracture table. The left lower extremity was then tractioned to provide a closed reduc tion, which was imaged in multiple planes. Approach: A standard approach to the distal femur was then taken on the left side. An incision in l ine with the femur was made ending at the knee joint. The fascia was then incised in line with this. The vastus lateralis was then elevated medially and anteriorly using Mishra retractors. At this p oint, the fracture was then easily visualized. Using different rotation maneuvers, the fracture itse lf was lined up and reduced. A 4.5 mm Synthes distal femur locking plate was then affixed to the bon e. Distal radiographs demonstrated where the plate should lie, anterior to posterior as well as dist al to proximal. At this time 4.5 mm screws were placed in the nonlocking holes in the femoral shaft. At this time K-wires were then fired across the femoral condyles while manual reduction was obtaine d. Reduction of the intercondylar split was also confirmed based on distal radiographs. Two 4.0 mm x 75 mm cannulated screws were then fired across the condyles to reduce them and hold them together. Attention was then turned towards the 4.5 mm plate. At this time several conical and locking screws were then placed in the holes for the distal aspect of the plate. The fracture was determined to be well reduced. Of note, at one point, the distal locking holes were noted to pull out from the bone due to poor bone quality. At this time the decision was made to use a single cerclage wire around th e butterfly spike of the medial femoral condyle. This was then tensioned appropriately and cut. X-r ays were then taken. The surgical displacement was noted to be minimal, but again a bridge plating t echnique was used and so it was determined that the bone would fill in within these gaps. The area w as then copiously irrigated. Closure: Attention was then turned toward closure. #1 Vicryl sutures were used to repair the fascia in a running and simple fashion. 2-0 Monocryl sutures were used to repair the subdermal tissues, an d gloria were used to repair the skin. I was present for all critical portions of this case. Recovery: The patient will be returned to the recovery room in stable condition. He will be nonweig htbearing for 6 weeks and will be using a brace. DVT prophylaxis will be deferred to the primary tea m. IMPLANTS: DePuy Synthes 4.5 mm distal femoral locking plate, associated screws, cerclage wire x1. COMPLICATIONS: None. CONDITION: Stable to PACU. /[id number]/MODL
[2018-05-14] MEDS: oxyCODONE IR 5 MG TAB PO PRN ×5 (06:03→21:13)
[2018-05-14] MEDS: ACETAMINOPHEN 500 MG TAB PO SCH ×2 (06:03→14:37)
[2018-05-14] MEDS: CYCLOBENZAPRINE 10 MG TAB PO SCH ×3 (09:31→21:13)
[2018-05-14] MEDS: SENNOSIDES/DOCUSATE SODIUM TAB PO SCH ×2 (09:31→21:13)
[2018-05-14] MEDS: NICOTINE 21 MG/24 HR PATCH TD SCH ×2 (09:32→09:36)
[2018-05-14] MEDS: POLYETHYLENE GLYCOL 3350 17 GM PKT PO PRN (09:32)
[2018-05-14] MEDS: ENOXAPARIN 40 MG/0.4 ML SYR SC SCH (09:32)
--- NOTE | 2018-05-14 11:08 | ASMTCMCOM ---
CM Note CM Note Notes: Mandi Bonner with [facility] ([phone]) completed pt functional assessment, he is approved. Dwayne Fagan ([phone]) calls to report pt PASRR is triggered Level II, a PASRR salesperson burial needs will complete assessment sometime between and Saturday. Pt triggering level II will exclude him from some SNFs such as [facility]. Pt placement is complicated by Medicaid pending, lack of SNF d/c plan and now level II PASRR. Once PASRR is complete it can be sent to SNFs to see if any can accept. Date Signed: 05/14/2018 11:07 AM Electronically Signed By:BOYD Morgan
--- NOTE | 2018-05-14 23:26 | HOSPPROG ---
Hospitalist Progress Note Assessment/Plan: The patient is a 58-year-old male with PMH smoking, dental disease who was admitted for acute left femur fracture. ASSESSMENT/PLAN: Acute left femur fracture, status post ORIF 05/11 -PT/OT/ISU. -NWB LLE -pending Rehab placement. Tobaco dependence -nicotine patch/gum. Dental caries -No abscess appreciated by oral surgeon, who had been consulted prior to surgery. -Recommend outpt FU for this, likely needs dental extractions. VTE prophylaxis: Lovenox Code Status: Full code Status: Inpatient for greater than 2 midnight stay. [place] [facility] [place] by the end of this [place]. ____ SUBJECTIVE: Patient has no new complaints. +pain in left lower extremity. OBJECTIVE: Physical Exam: General: The patient is a male who is alert and in no acute distress. HEENT: normocephalic, extraocular movements intact, conjunctivae clear. Mucous membranes moist. Missing multiple teeth. Poor dentition noted. Neck: trachea midline, no visible masses. Resp: unlabored. Abd: Nondistended. Musculoskeletal: Normal muscle tone/bulk. Neuro: cranial nerves II XII grossly intact. Intact gross motor and sensory function. Psych: Appropriate mood and appropriate affect. Skin: Mild pallor. No petechiae. Heme/lymph: + 1 pitting peripheral edema at left lower extremity pretibial. No pitting edema right lower extremity. Labs/Imaging/Other Tests: Personally reviewed/interpreted. Objective: Vital Signs Temp Pulse Resp BP Pulse Ox 36.6 C 87 16 100/66 94 05/14/18 16:00 05/14/18 16:00 05/14/18 16:00 05/14/18 16:00 05/14/18 16:00 05/13/18 05/14/18 05/15/18 05:59 05:59 05:59 Intake Total 700 800 800 Output Total 9213 9710 163 Jzzlfqz -914 -1772 020 ICD10 Worksheet Patient Problems: Problems Problem Status Onset Femoral distal fracture Acute
[2018-05-15] MEDS: ACETAMINOPHEN 500 MG TAB PO SCH ×4 (00:42→21:11)
[2018-05-15] MEDS: oxyCODONE IR 5 MG TAB PO PRN ×2 (06:12→21:13)
[2018-05-15] MEDS: ENOXAPARIN 40 MG/0.4 ML SYR SC SCH (08:54)
[2018-05-15] MEDS: CYCLOBENZAPRINE 10 MG TAB PO SCH ×3 (08:55→21:10)
[2018-05-15] MEDS: SENNOSIDES/DOCUSATE SODIUM TAB PO SCH ×2 (08:55→21:11)
[2018-05-15] MEDS: NICOTINE 21 MG/24 HR PATCH TD SCH (11:09)
--- NOTE | 2018-05-15 16:48 | HOSPPROG ---
Hospitalist Progress Note Assessment/Plan: The patient is a 58-year-old male with PMH smoking, dental disease who was admitted for acute left femur fracture. ASSESSMENT/PLAN: Acute left femur fracture, status post ORIF 05/11 -PT/OT/ISU. -NWB LLE -pending Rehab placement. Tobaco dependence -nicotine patch/gum. Dental caries -No abscess appreciated by oral surgeon, who had been consulted prior to surgery. -Recommend outpt FU for this, likely needs dental extractions. VTE prophylaxis: Lovenox Code Status: Full code Status: Inpatient for greater than 2 midnight stay. Disposition: [facility] with discharge anticipated by the end of this week. ____ SUBJECTIVE: Patient has no new complaints Slowly getting better. OBJECTIVE: Physical Exam: General: The patient is a male who is alert and in no acute distress. HEENT: normocephalic, extraocular movements intact, conjunctivae clear. Mucous membranes moist. Missing multiple teeth. Poor dentition noted. Neck: trachea midline, no visible masses. Resp: unlabored. Abd: Nondistended. Musculoskeletal: Normal muscle tone/bulk. Neuro: cranial nerves II XII grossly intact. Intact gross motor and sensory function. Psych: Appropriate mood and appropriate affect. Skin: Mild pallor. No petechiae. Labs/Imaging/Other Tests: Personally reviewed/interpreted. Objective: Vital Signs Temp Pulse Resp BP Pulse Ox 36.7 C 87 17 106/51 L 94 05/15/18 15:43 05/15/18 15:43 05/15/18 15:43 05/15/18 15:43 05/15/18 15:43 05/14/18 05/15/18 05/16/18 05:59 05:59 05:59 Intake Total 800 1800 1240 Output Total 3075 1075 1150 Balance -2275 725 90 ICD10 Worksheet Patient Problems: Problems Problem Status Onset Femoral distal fracture Acute
--- NOTE | 2018-05-15 20:25 | GPROG ---
I saw and evaluated Chris this morning. Overall, he reports that his leg is doing much better than it was before. He has been able to ambulate, while maintaining nonweightbearing status on that left le g. PHYSICAL EXAM: The dressing is clean, dry, intact and left in place. Rotation and length are equal on the operative extremity. ASSESSMENT AND PLAN: Chris can be discharged at any point from my perspective, pending medical cleara nce, and physical therapy evaluation. Of note, I have requested that he be made nonweightbearing for the next 6 weeks, which obviously may affect his ultimate disposition. Please do not hesitate to co ntact me if any further questions arise. /[id number]/MODL
[2018-05-16] MEDS: ACETAMINOPHEN 500 MG TAB PO SCH ×3 (06:15→23:36)
[2018-05-16] MEDS: POLYETHYLENE GLYCOL 3350 17 GM PKT PO PRN (09:45)
[2018-05-16] MEDS: ENOXAPARIN 40 MG/0.4 ML SYR SC SCH (09:45)
[2018-05-16] MEDS: CYCLOBENZAPRINE 10 MG TAB PO SCH ×3 (09:46→23:35)
[2018-05-16] MEDS: SENNOSIDES/DOCUSATE SODIUM TAB PO SCH (09:46)
[2018-05-16] MEDS: NICOTINE 21 MG/24 HR PATCH TD SCH (09:54)
--- NOTE | 2018-05-16 10:04 | ASMTCMCOM ---
CM Note CM Note Notes: September is PASRR occupational therapist home based, she will be in this weekend to assess pt. CM to provide her a copy of [facility] [place] note. After PASRR complete then CM can see if SNF placement can be secured. Date Signed: 05/16/2018 10:03 AM Electronically Signed By:BOYD Morgan
--- NOTE | 2018-05-16 13:01 | ASMTCMCOM ---
CM Note CM Note Notes: Maximilian with [facility] reports pt financially denied by [employer]. Date Signed: 05/16/2018 01:00 PM Electronically Signed By:BOYD Morgan
--- NOTE | 2018-05-16 16:26 | HOSPPROG ---
Hospitalist Progress Note Assessment/Plan: The patient is a 58-year-old male with PMH smoking, dental disease who was admitted for acute left femur fracture. ASSESSMENT/PLAN: Acute left femur fracture, status post ORIF 05/11 -PT/OT/ISU. -NWB LLE x 6 weeks -pending SNF placement. Tobaco dependence -nicotine patch/gum. Dental caries -No abscess appreciated by oral surgeon, who had been consulted prior to surgery. -Recommend outpt FU for this, likely needs dental extractions. VTE prophylaxis: Lovenox Code Status: Full code Status: Inpatient for greater than 2 midnight stay. Disposition: Med [facility] [place] with discharge anticipated early next week. ____ SUBJECTIVE: Patient has no new complaints slowly getting better. OBJECTIVE: Physical Exam: General: The patient is a male who is alert and in no acute distress. HEENT: normocephalic, extraocular movements intact, conjunctivae clear. Mucous membranes moist. Missing multiple teeth. Poor dentition noted. Neck: trachea midline, no visible masses. Resp: unlabored. Abd: Nondistended. Musculoskeletal: Normal muscle tone/bulk. Neuro: cranial nerves II XII grossly intact. Intact gross motor and sensory function. Psych: Appropriate mood and appropriate affect. Skin: Mild pallor. No petechiae. Labs/Imaging/Other Tests: Personally reviewed/interpreted. Objective: Vital Signs Temp Pulse Resp BP Pulse Ox 36.7 C 81 14 103/51 L 94 05/16/18 07:11 05/16/18 07:11 05/16/18 07:11 05/16/18 07:11 05/16/18 07:11 05/15/18 05/16/18 05/17/18 05:59 05:59 05:59 Intake Total 1800 2190 Output Total 1075 1999 350 Balance 725 190 -350 ICD10 Worksheet Patient Problems: Problems Problem Status Onset Femoral distal fracture Acute
[2018-05-17] MEDS: SENNOSIDES/DOCUSATE SODIUM TAB PO SCH ×3 (04:17→21:48)
[2018-05-17] MEDS: POLYETHYLENE GLYCOL 3350 17 GM PKT PO PRN (05:59)
[2018-05-17] MEDS: ACETAMINOPHEN 500 MG TAB PO SCH ×5 (06:56→23:13)
[2018-05-17] MEDS: ENOXAPARIN 40 MG/0.4 ML SYR SC SCH (08:10)
[2018-05-17] MEDS: CYCLOBENZAPRINE 10 MG TAB PO SCH ×3 (08:12→21:48)
[2018-05-17] MEDS: NICOTINE 21 MG/24 HR PATCH TD SCH (08:12)
--- NOTE | 2018-05-17 16:17 | ASMTCMCOM ---
CM Note CM Note Notes: [place] came today to evaluate pt's triggered PASSR Level II. No email response from her yet. Pt admitted for surgery to left femur fracture will need short term rehab in a SNF. Medicaid is pending. Pt not likely to discharge before Saturday. D/C Plan: SNF pending PASSR evaluation Date Signed: 05/17/2018 04:16 PM Electronically Signed By:Suzan Richardson
--- NOTE | 2018-05-17 16:34 | HOSPPROG ---
Hospitalist Progress Note Assessment/Plan: The patient is a 58-year-old male with PMH smoking, dental disease who was admitted for acute left femur fracture. ASSESSMENT/PLAN: Acute left femur fracture, status post ORIF 05/11 -PT/OT/ISU. -NWB LLE x 6 weeks -pending SNF placement. Tobaco dependence -nicotine patch/gum. Dental caries -No abscess appreciated by oral surgeon, who had been consulted prior to surgery. -Recommend outpt FU for this, likely needs dental extractions. VTE prophylaxis: Lovenox Code Status: Full code Status: Inpatient for greater than 2 midnight stay. Disposition: [facility] with discharge anticipated early next week. ____ SUBJECTIVE: Patient has no new complaints slowly getting better. OBJECTIVE: Physical Exam: General: The patient is a male who is alert and in no acute distress. HEENT: normocephalic, extraocular movements intact, conjunctivae clear. Mucous membranes moist. Missing multiple teeth. Poor dentition noted. Neck: trachea midline, no visible masses. Resp: unlabored. Abd: Nondistended. Musculoskeletal: Normal muscle tone/bulk. Neuro: cranial nerves II XII grossly intact. Intact gross motor and sensory function. Psych: Appropriate mood and appropriate affect. Skin: Mild pallor. No petechiae. Labs/Imaging/Other Tests: Personally reviewed/interpreted. Objective: Vital Signs Temp Pulse Resp BP Pulse Ox 36.6 C 91 16 102/75 96 05/17/18 15:31 05/17/18 15:31 05/17/18 15:31 05/17/18 15:31 05/17/18 15:31 05/16/18 05/17/18 05/18/18 05:59 05:59 05:59 Intake Total 0 1500 Output Total 1999 1075 1500 Balance 190 425 -1500 ICD10 Worksheet Patient Problems: Problems Problem Status Onset Femoral distal fracture Acute
--- NOTE | 2018-05-17 20:05 | GPROG ---
I saw and evaluated the patient today during my rounds. Overall, he is in good spirits and he report s that his pain is much improved from before the operation. PHYSICAL EXAM: GENERAL: The dressing is clean, dry, intact, and left in place. EXTREMITIES: Of no te, the limb is swollen but not beyond what I would expect. Of note, the fracture itself was noted t o be intra-articular and this accounts for the joint effusion. NEUROLOGIC: He is grossly neurologic ally intact. ASSESSMENT/PLAN: The patient will be discharged at any point and should follow up with me in 2 weeks ' time. /[id number]/MODL
[2018-05-18] MEDS: ACETAMINOPHEN 500 MG TAB PO SCH ×3 (05:44→21:55)
[2018-05-18] MEDS: CYCLOBENZAPRINE 10 MG TAB PO SCH ×3 (08:30→21:55)
[2018-05-18] MEDS: ENOXAPARIN 40 MG/0.4 ML SYR SC SCH (08:31)
[2018-05-18] MEDS: NICOTINE 21 MG/24 HR PATCH TD SCH (08:31)
[2018-05-18] MEDS: SENNOSIDES/DOCUSATE SODIUM TAB PO SCH ×2 (08:31→21:55)
--- NOTE | 2018-05-18 08:37 | GPROG ---
I saw and evaluated this patient this morning. Overall, he does report improvement of pain day by reena roberts. PHYSICAL EXAMINATION: His leg has normal rotation and length to the contralateral side. ASSESSMENT/PLAN: The patient can be discharged from my perspective whenever he is ready to go and fo llow up with me in 2 weeks for staple removal. /[id number]/MODL
--- NOTE | 2018-05-18 16:04 | HOSPPROG ---
Hospitalist Progress Note Assessment/Plan: The patient is a 58-year-old male with PMH smoking, dental disease who was admitted for acute left femur fracture. ASSESSMENT/PLAN: Acute left femur fracture, status post ORIF 05/11 -PT/OT/ISU. -NWB LLE x 6 weeks. -pending SNF placement. -FU w/ Ortho in 2 weeks for staple removal. Tobaco dependence -nicotine patch/gum. Dental caries -No abscess appreciated by oral surgeon, who had been consulted prior to surgery. -Recommend outpt FU for this, likely needs dental extractions. VTE prophylaxis: Lovenox Code Status: Full code Status: Inpatient for greater than 2 midnight stay. Disposition: [facility] with discharge anticipated early this week. ____ SUBJECTIVE: Patient has no new complaints slowly getting better. OBJECTIVE: Physical Exam: General: The patient is a male who is alert and in no acute distress. HEENT: normocephalic, extraocular movements intact, conjunctivae clear. Mucous membranes moist. Missing multiple teeth. Poor dentition noted. Neck: trachea midline, no visible masses. Resp: unlabored. Abd: Nondistended. Musculoskeletal: Normal muscle tone/bulk. Neuro: cranial nerves II XII grossly intact. Intact gross motor and sensory function. Psych: Appropriate mood and appropriate affect. Skin: Mild pallor. No petechiae. Objective: Vital Signs Temp Pulse Resp BP Pulse Ox 36.8 C 87 17 117/64 97 05/18/18 07:34 05/18/18 07:34 05/18/18 07:34 05/18/18 07:34 05/18/18 07:34 05/17/18 05/18/18 05/19/18 05:59 05:59 05:59 Intake Total 5966 716 1977 Output Total 1075 2750 1000 Balance 425 -2300 0 ICD10 Worksheet Patient Problems: Problems Problem Status Onset Femoral distal fracture Acute
[2018-05-19] MEDS: ACETAMINOPHEN 500 MG TAB PO SCH (06:34)
[2018-05-19] MEDS: HYDROCODONE/APAP 5/325 TAB PO PRN ×3 (07:54→16:46)
[2018-05-19] MEDS: SENNOSIDES/DOCUSATE SODIUM TAB PO SCH ×2 (07:55→21:32)
[2018-05-19] MEDS: CYCLOBENZAPRINE 10 MG TAB PO SCH ×3 (07:55→21:32)
[2018-05-19] MEDS: ENOXAPARIN 40 MG/0.4 ML SYR SC SCH (10:14)
[2018-05-19] MEDS: NICOTINE 21 MG/24 HR PATCH TD SCH ×2 (10:14→18:26)
--- NOTE | 2018-05-19 15:13 | HOSPPROG ---
Hospitalist Progress Note Assessment/Plan: 58-year-old male with PMH smoking, dental disease who was admitted for acute left femur fracture s/p ORIF on 05/[address] Cook. This is my first encounter with the patient, chart reviewed. 1. Acute left femur fracture -PT/OT -NWB LLE x 6 weeks. -pending SNF - CM working on insurance/placement -FU w/ Ortho in 2 weeks for staple removal. 2. Tobaco dependence -nicotine patch/gum. 3. Dental caries -No abscess appreciated by oral surgeon, who had been consulted prior to surgery. -Recommend outpt FU for this, likely needs dental extractions. VTE prophylaxis: Lovenox Code Status: Full code Disposition: Remain inpatient, unsafe to discharge as unable to ambulate. Working on SNF placement. Subjective: Overall he feels like he is progressing. Pain mostly controlled. Moving bowels. Good appetite. Objective: Vital Signs Temp Pulse Resp BP Pulse Ox 36.4 C 80 16 95/65 L 96 05/19/18 07:47 05/19/18 07:47 05/19/18 07:47 05/19/18 07:47 05/19/18 07:47 05/18/18 05/19/18 05/20/18 05:59 05:59 05:59 Intake Total 450 1840 Output Total 2750 1900 350 Balance -2300 -60 -350 - Physical Exam Constitutional: no apparent distress, appears nourished, not in pain Eyes: PERRL, anicteric sclera, EOMI Ears, Nose, Mouth, Throat: moist mucous membranes, hearing normal, ears appear normal, no oral mucosal ulcers Cardiovascular: regular rate and rhythym, no murmur, rub, or gallop, No JVD, No edema Respiratory: no respiratory distress, no rales or rhonchi, clear to auscultation Gastrointestinal: normoactive bowel sounds, soft, non-tender abdomen, no palpable masses Genitourinary: no bladder fullness, no bladder tenderness, no renal bruits Skin: no rashes or abrasions, no fluctuance, no induration Musculoskeletal: other (left leg in brace) Neurologic: AAOx3, sensation intact bilaterally Psychiatric: interacting appropriately, not anxious, not encephalopathic, thought process linear ICD10 Worksheet Patient Problems: Problems Problem Status Onset Femoral distal fracture Acute
--- NOTE | 2018-05-19 15:24 | ASMTCMCOM ---
CM Note CM Note Notes: SNF placement still pending. Dawyne Fagan sent this CM pt's unsigned level II PASRR, this was attached to [employer] and forwarded to SNFs. Will provide SNFs time to review. CM to follow. Date Signed: 05/19/2018 03:24 PM Electronically Signed By:BOYD Morgan
[2018-05-19] MEDS: oxyCODONE IR 5 MG TAB PO PRN ×2 (18:21→21:37)
[2018-05-20] MEDS: oxyCODONE IR 5 MG TAB PO PRN ×4 (08:25→21:19)
[2018-05-20] MEDS: SENNOSIDES/DOCUSATE SODIUM TAB PO SCH ×2 (08:25→21:18)
[2018-05-20] MEDS: CYCLOBENZAPRINE 10 MG TAB PO SCH ×3 (08:25→21:19)
[2018-05-20] MEDS: NICOTINE 21 MG/24 HR PATCH TD SCH (08:26)
--- NOTE | 2018-05-20 09:02 | GPROG ---
I saw and evaluated the patient at the bedside this morning. Overall, he is doing quite well. He re ally has not taken anything for pain medication since the operation. The dressings are clean, dry, i ntact, and left in place. ASSESSMENT AND PLAN: At this point, it has been several days, and I will sign off. The patient does not need any more further acute orthopedic care. If there are any active issues, please do not hesi solitario to contact me. At this point, the patient is simply awaiting placement. Again, thank you for alma sam care of this patient. /[id number]/MODL
[2018-05-20] MEDS: ENOXAPARIN 40 MG/0.4 ML SYR SC SCH (10:20)
--- NOTE | 2018-05-20 15:03 | HOSPPROG ---
Hospitalist Progress Note Assessment/Plan: 58-year-old male with PMH smoking, dental disease who was admitted for acute left femur fracture s/p ORIF on 05/[address] Cook. 1. Acute left femur fracture -PT/OT -NWB LLE x 6 weeks. -pending SNF - CM working on insurance/placement -FU w/ Ortho in 2 weeks for staple removal. 2. Tobaco dependence -nicotine patch/gum. 3. Dental caries -No abscess appreciated by oral surgeon, who had been consulted prior to surgery. -Recommend outpt FU for this, likely needs dental extractions. VTE prophylaxis: Lovenox which he is refusing. I strongly advised him to use this in jose-op setting. Will order SCDs Code Status: Full code Disposition: Remain inpatient, unsafe to discharge as unable to ambulate. Working on SNF placement. Subjective: Continues to improve. Still using pain meds on occasion but controlling it. Having regular BMs, good appetite. No fevers Objective: Vital Signs Temp Pulse Resp BP Pulse Ox 36.7 C 92 16 121/72 H 92 05/19/18 23:16 05/19/18 23:16 05/19/18 23:16 05/19/18 23:16 05/19/18 23:16 05/19/18 05/20/18 05/21/18 05:59 05:59 05:59 Intake Total 1840 Output Total 1900 650 Balance -60 -650 - Physical Exam Constitutional: no apparent distress, appears nourished, not in pain Eyes: PERRL, anicteric sclera, EOMI Ears, Nose, Mouth, Throat: moist mucous membranes, hearing normal, ears appear normal, no oral mucosal ulcers Cardiovascular: regular rate and rhythym, no murmur, rub, or gallop, No edema Respiratory: no respiratory distress, no rales or rhonchi, clear to auscultation Gastrointestinal: normoactive bowel sounds, soft, non-tender abdomen, no palpable masses Genitourinary: no bladder fullness, no bladder tenderness, no renal bruits Skin: no rashes or abrasions, no fluctuance, no induration Musculoskeletal: other (left leg in brace) Neurologic: AAOx3, sensation intact bilaterally Psychiatric: interacting appropriately, not anxious, not encephalopathic, thought process linear ICD10 Worksheet Patient Problems: Problems Problem Status Onset Femoral distal fracture Acute
--- NOTE | 2018-05-20 15:59 | ASMTCMCOM ---
CM Note CM Note Notes: [facility] declined patient d/t Level II PASRR. Reached out to Fatimah at [facility] for further recommendations on facilities that may be able to accommodate. More facilities reviewing, CM will continue to follow for placement. Plan: SNF Date Signed: 05/20/2018 03:59 PM Electronically Signed By:Verenice Dao RN
[2018-05-20] MEDS: ACETAMINOPHEN 500 MG TAB PO PRN (16:32)
[2018-05-21] MEDS: ACETAMINOPHEN 500 MG TAB PO PRN (06:06)
[2018-05-21] MEDS: oxyCODONE IR 5 MG TAB PO PRN ×3 (06:06→18:41)
[2018-05-21] MEDS: CYCLOBENZAPRINE 10 MG TAB PO SCH (09:02)
[2018-05-21] MEDS: ENOXAPARIN 40 MG/0.4 ML SYR SC SCH (09:02)
[2018-05-21] MEDS: NICOTINE 21 MG/24 HR PATCH TD SCH (09:03)
[2018-05-21] MEDS: SENNOSIDES/DOCUSATE SODIUM TAB PO SCH ×2 (09:45→21:41)
--- NOTE | 2018-05-21 12:56 | HOSPPROG ---
Hospitalist Progress Note Assessment/Plan: 58-year-old male with PMH smoking, dental disease who was admitted for acute left femur fracture after mechanical fall. 1. Acute left femur fracture s/p ORIF on 05/[address] Cook -PT/OT -NWB LLE x 6 weeks. -pending SNF - CM working on insurance/placement. declined from [facility], CM contacting additional rehab centers -FU w/ Ortho in 2 weeks for staple removal -Switch flexeril from scheduled to PRN -Discontinue hydrocodone (not using), continue oxycodone 2. Tobaco dependence -nicotine patch/gum. 3. Dental caries -No abscess appreciated by oral surgeon, who had been consulted prior to surgery. -Recommend outpt FU for this, likely needs dental extractions. VTE prophylaxis: Lovenox which he is refusing. I strongly advised him to use this in jose-op setting. Ordered SCDs Code Status: Full code Disposition: Remain inpatient, unsafe to discharge as unable to ambulate. Working on SNF placement. Subjective: Continues to "heal". Pain controlled with oxycodone, not using hydrocodone. Informed him that he was declined from [facility]. Objective: Vital Signs Temp Pulse Resp BP Pulse Ox 36.8 C 82 16 107/63 94 05/21/18 08:00 05/21/18 08:00 05/21/18 08:00 05/21/18 08:00 05/21/18 08:00 05/20/18 05/21/18 05/22/18 05:59 05:59 05:59 Intake Total 2300 Output Total 650 1800 1200 Balance -650 500 -1200 - Physical Exam Constitutional: no apparent distress, appears nourished, not in pain Eyes: PERRL, anicteric sclera, EOMI Ears, Nose, Mouth, Throat: moist mucous membranes, hearing normal, ears appear normal, no oral mucosal ulcers Cardiovascular: regular rate and rhythym, no murmur, rub, or gallop, No edema Respiratory: no respiratory distress, no rales or rhonchi, clear to auscultation Gastrointestinal: normoactive bowel sounds, soft, non-tender abdomen, no palpable masses Genitourinary: no bladder fullness, no bladder tenderness, no renal bruits Skin: no rashes or abrasions, no fluctuance, no induration Musculoskeletal: other (left leg in brace) Neurologic: AAOx3, sensation intact bilaterally Psychiatric: interacting appropriately, not anxious, not encephalopathic, thought process linear ICD10 Worksheet Patient Problems: Problems Problem Status Onset Femoral distal fracture Acute
--- NOTE | 2018-05-21 13:18 | ASMTCMCOM ---
CM Note CM Note Notes: Still no SNF placement. Several phone calls made to pending SNFs, had to leave voicemails for admissions staff. Numerous new SNF referrals sent in Allscripts all over [place]. Date Signed: 05/21/2018 01:17 PM Electronically Signed By:BOYD Morgan
[2018-05-21] MEDS: CYCLOBENZAPRINE 10 MG TAB PO PRN (18:03)
[2018-05-22] MEDS: oxyCODONE IR 5 MG TAB PO PRN ×6 (02:55→23:55)
[2018-05-22] MEDS: NICOTINE 21 MG/24 HR PATCH TD SCH (07:57)
[2018-05-22] MEDS: ENOXAPARIN 40 MG/0.4 ML SYR SC SCH (07:57)
[2018-05-22] MEDS: SENNOSIDES/DOCUSATE SODIUM TAB PO SCH ×2 (07:57→20:09)
[2018-05-22] MEDS: ACETAMINOPHEN 500 MG TAB PO PRN ×2 (11:50→20:22)
--- NOTE | 2018-05-22 15:47 | HOSPPROG ---
Hospitalist Progress Note Assessment/Plan: The patient is a 58-year-old male with PMH smoking, dental disease who was admitted for acute left femur fracture. ASSESSMENT/PLAN: Acute left femur fracture, status post ORIF 05/11 -PT/OT/ISU. -NWB LLE x 6 weeks total (week 1 complete). -pending SNF placement. -FU w/ Ortho in 1 week for staple removal. Tobaco dependence -nicotine patch/gum. Dental caries -No abscess appreciated by oral surgeon, who had been consulted prior to surgery. -Recommend outpt FU for this, likely needs dental extractions. VTE prophylaxis: Lovenox Code Status: Full code Status: Inpatient for greater than 2 midnight stay. Disposition: [facility] with discharge anticipated tomorrow. ____ SUBJECTIVE: Patient has no new complaints slowly getting better. OBJECTIVE: Physical Exam: General: The patient is a male who is alert and in no acute distress. HEENT: normocephalic, extraocular movements intact, conjunctivae clear. Mucous membranes moist. Missing multiple teeth. Poor dentition noted. Neck: trachea midline, no visible masses. Resp: unlabored. Abd: Nondistended. Musculoskeletal: Normal muscle tone/bulk. Neuro: cranial nerves II XII grossly intact. Intact gross motor and sensory function. Psych: Appropriate mood and appropriate affect. Skin: Mild pallor. No petechiae. Objective: Vital Signs Temp Pulse Resp BP Pulse Ox 36.9 C 94 16 110/54 L 92 05/22/18 07:43 05/22/18 10:50 05/22/18 10:50 05/22/18 10:50 05/22/18 10:50 05/21/18 05/22/18 05/23/18 05:59 05:59 05:59 Intake Total 2300 1200 Output Total 1800 2050 1000 Balance 500 -850 -1000 ICD10 Worksheet Patient Problems: Problems Problem Status Onset Femoral distal fracture Acute
--- NOTE | 2018-05-22 17:08 | ASMTCMCOM ---
CM Note CM Note Notes: 05/22/2018 Case Management Note. Discussion with Delilah from [facility]. Delilah considering acceptance if Level II PASRR is changed to time limited. Phone call to Dwayne Fagan, PASRR coordinator [phone]. Dwayne called [facility] and will discuss with members of her team if a change is appropriate for PASRR. Iraida Larkin [phone] visited pt this morning. Left vm with Chaya to discuss placement. Faxed referrals to additional SNFs and added in [facility]. Pt friend who identifies himself as Dr. Kodak Gilliam psychologist [phone] requested conversation with case management. Kodak is unwilling to participate in care of pt at d/c. Kodak was homeless himself decades ago and befriended pt at the [facility] in [place]. Discussed w/PT. PT to evaluate pt tomorrow for discharge needs. Provided donated w/c to pt for likely d/c to alf. Attempted to discuss discharge options with pt. Pt refuses reserved alf bed stating "only dirty people live there". Pt refused appointments at [facility], [facility] or [facility]. Encouraged pt to allow case management to reserve a alf bed, to complete coordinated entry and connect with immigration case manager at [facility] or the alf RN for continuing care. Pt declined stating he would know when his leg was healed. Updated Verenice Dao of efforts for placement today. Case Management d/c poc: to be determined, likely alf when medically stable. Case Management to follow. Date Signed: 05/22/2018 05:07 PM Electronically Signed By:Delphine Herbert RN
[2018-05-23] MEDS: CYCLOBENZAPRINE 10 MG TAB PO PRN (00:32)
[2018-05-23 08:05] VITALS: BP 135/60
[2018-05-23] MEDS: oxyCODONE IR 5 MG TAB PO PRN (08:05)
[2018-05-23] MEDS: ACETAMINOPHEN 500 MG TAB PO PRN (08:08)
[2018-05-23] MEDS: ENOXAPARIN 40 MG/0.4 ML SYR SC SCH (08:21)
[2018-05-23] MEDS: SENNOSIDES/DOCUSATE SODIUM TAB PO SCH (08:22)
[2018-05-23] MEDS: NICOTINE 21 MG/24 HR PATCH TD SCH (08:22)
--- NOTE | 2018-05-23 13:33 | PDDCSUM ---
Discharge Summary Discharge Summary: Date of Admission: May 06, 2018 Date of Discharge: May 23, 2018 Discharge Diagnoses: Acute left distal femur fracture, status post ORIF Tobacco dependence Dental caries Admission Diagnoses: Acute left distal femur fracture Poor dentition Hyperglycemia Consultants: Orthopedic surgery-Dr. Robby Cornejo, Dr. Harpreet Cook Oral surgery-Dr. Mullins [facility] Course: The patient is a 58-year-old homeless male who presented with an acute left distal femur fracture after he sustained a mechanical fall. He was pushing a shopping cart and fell down some stairs with it. Patient was evaluated and cleared for surgery. An oral surgeon was consulted since the patient had extensive dental disease and was considered to be higher risk for orthopedic surgery. The oral surgeon recommended to proceed with orthopedic surgery Patient initially opted not to get surgery for about a week. He finally agree to surgery and underwent ORIF without complication on May 13. He was instructed to be nonweightbearing for 6 weeks on his left leg. Patient remained in the hospital for about 10 days following his surgery because he was unable to gain admission to a fci facility. He was discharged to a hotel with a wheelchair in stable condition. Physical Exam: Gen - alert, oriented, in NAD. MSK: able to perform modified ambulation w/ wheelchair, both arms, and R leg. Condition: Stable. Discharged to: Hotel. Pertinent tests/labs/imaging: Left knee x-ray, four view: Displaced, angulated, impacted, and comminuted intra-articular fracture of the distal left femur. Medications: Please see med rec form. Acetaminophen 1000 mg every 8 hours as needed for pain. Flexeril 10 mg 3 times a day as needed for spasms #30. Oxycodone IR 5-10 mg Q 6 hour as needed for pain #56. Senokot 1-2 tabs twice a day. Special instructions: Non weight bearing left lower leg x [address] Cook to remove surgical gloria at follow up, call for appt. Follow up: Ortho Dr. Cook - 1 week. PCP - 1 week (referral to [facility] given). > 30 minutes of total time was spent on counseling and coordination of care for this patient's discharge.
--- NOTE | 2018-05-23 16:19 | ASMTCMCOM ---
CM Note CM Note Notes: Pt d/cing today. Medications delivered to pt's room and paid for by CM. Pt being sent by [facility] to [facility] where CM has reserved a 5 night stay. Pt sent with food to eat this evening. He has been given 4 taxi vouchers which will allow him to go to [facility] tomorrow and to [facility] on Saturday. He can eat there both days. On Saturday [facility] will begin to deliver 2 meals per day through Saturday. Pt has an appt with his surgeon scheduled for Saturday at 2:00PM. He has been given taxi vouchers to both get to his appt and then to [facility]. Pt seemed pleased with the plan and expressed feeling taken care of. D/C Plan: [facility], [facility], [facility], [facility] Date Signed: 05/23/2018 04:18 PM Electronically Signed By:Deanne Luna
--- NOTE | 2018-05-23 16:22 | ASMTDCNOTE ---
Case Management Discharge Discharge Order Complete? Answers: Yes Followup Appointment 05/30/2018 02:00 PM Patient to Obtain Answers: Other Notes: Taxi voucher Medications Transportation Arranged Answers: [facility] W/C Transport will Pick (Date 05/23/2018 04:00 PM & Time) Case Management Transport Answers: Yes Form Complete Discharge Comments Notes: Pt discharging to [facility] for 5 nights, paid for by . Pt discharging with medications and 6 taxi vouchers enabling him to get back and forth to [facility] this weekend and back and forth from his post-surgery appt next saturday at 2:00PM. [facility] will begin delivery of meals on Saturday and continue through Saturday. Pt transported to [facility] today by [facility]. Date Signed: 05/23/2018 04:21 PM Electronically Signed By:Deanne Luna
--- NOTE | 2018-05-23 16:23 | ASMTLACE ---
LACE Length of stay for Answers: 14 days or more current admission Acuity / Level of Answers: Yes Care: Did the patient have an inpatient admission? # of Emergency department Answers: 1-2 visits in the last 6 months Social determinants Answers: Homelessness (street, snf) Score: 14 Date Signed: 05/23/2018 04:22 PM Electronically Signed By:Deanne Luna
--- NOTE | 2018-05-26 16:20 | ASDISCHSUM ---
Discharge Information Plan Status:Homeless/Fpc Medically Cleared to Leave: Discharge Date:05/23/2018 04:47 PM D/C Disposition:Other (Not listed) ADT D/C Disposition:Home, Routine, Self-Care Projected Discharge Date:05/23/2018 11:00 AM Transportation at D/C:ALS/BLS Discharge Delay Reason: Follow-Up Date:05/23/2018 11:00 AM Discharge Slot: Final Diagnosis: Placement Information Referral Type:*Fdc/SNF Referral ID:[id number] Provider Name: Address 1: Phone Number: Address 2: Fax Number: City: Selection Factors: State: Referral Type:Assisted Living Residence Referral ID:[id number] Provider Name: Address 1: Phone Number: Address 2: Fax Number: City: Selection Factors: State: Patient Contact Information Contact Name:SOM Relationship: Address: Home Phone: Work Phone: City: Alternate Phone: State/[place]iz[place] Code: Email: Financial Information Financial Class:Self-Pay Primary Plan Desc:SELF PAY Primary Plan Number: Secondary Plan Desc: Secondary Plan Number: Assessment Information LACE LACE Length of stay for Answers: 14 days or more current admission Acuity / Level of Answers: Yes Care: Did the patient have an inpatient admission? # of Emergency department Answers: 1-2 visits in the last 6 months Social determinants Answers: Homelessness (street, care home) Score: 14 Date Signed: 05/23/2018 04:22 PM Electronically Signed By:Deanne Luna [facility] CM Progress Note CM Note CM Note Notes: Pt who is homeless has femur fx after fall. Pt declining surgery which ortho recommends needs surgery. Pt currently self-pay, [employer] attempted to screen pt for Medicaid and he declined signing the paperwork. SHADY musa order in. documents pt has capacity to make decisions. [facility] consult with Shirley Lyons pending. Pt has no prior [facility] admissions. Pt reports he has no friends/family anywhere because "they are all killers." Pt reports his d/c plan is to heal for one week and then be able to be on crutches. Pt verbalizes his femur fx will heal on its own, he has healed himself before. Pt is really wanting to smoke a cigarette. Pt reports he has been living on the porch of a "fish store," has not been to the [facility]. Date Signed: 05/07/2018 03:53 PM Electronically Signed By:BOYD Morgan [facility] CM Progress Note CM Note CM Note Notes: Late yesterday CARY Tapia met with pt and pt verbalized agreement to surgery Saturday. At the time CARY left yesterday MARYELLEN Mayfield was helping to see when surgery could be scheduled. Pt did sign the Medicaid application forms, [employer] alerted by email and will clam picker Saturday. Today Hospitalist Ajith reports pt again is declining surgery. Pt will likely d/c to hotel [facility] if approved by CM management with wc and walker, [facility] and maybe [facility]. WC with elevated leg rest still needs to be located. CM to follow. Date Signed: 05/10/2018 11:16 AM Electronically Signed By:BOYD Morgan [facility] CM Progress Note CM Note CM Note Notes: Pt had surgery for femur fx yesterday. Pt to be NWB for 6 weeks. Today pt is open to 30 day Medicaid SNF stay. Pt signed ULTC 100 and it was faxed to [facility]. [facility] Data alerted for LT Medicaid cha. Referrals sent to SNFs in Allscripts. Placement likely will be a challenge due to Medicaid pending status. CM to follow. Date Signed: 05/12/2018 11:02 AM Electronically Signed By:BOYD Morgan [facility] CM Progress Note CM Note CM Note Notes: Many SNF declines in Allscripts. [facility], [facility] and [facility] have expressed interest, they all need to see if pt PASRR will trigger level 2 and a barrier could be pt lack of SNF d/c plan. [facility] should eval by close of business or early then we may know about the PASRR. CM to follow. Date Signed: 05/13/2018 02:56 PM Electronically Signed By:BOYD Morgan [facility] CM Progress Note CM Note CM Note Notes: Mandi Bonner with [facility] ([phone]) completed pt functional assessment, he is approved. Dwayne Fagan ([phone]) calls to report pt PASRR is triggered Level II, a PASRR wire stripper will complete assessment sometime between and Saturday. Pt triggering level II will exclude him from some SNFs such as [facility]. Pt placement is complicated by Medicaid pending, lack of SNF d/c plan and now level II PASRR. Once PASRR is complete it can be sent to SNFs to see if any can accept. Date Signed: 05/14/2018 11:07 AM Electronically Signed By:BOYD Morgan [facility] CM Progress Note CM Note CM Note Notes: Stephy is PASRR wire stripper, she will be in this weekend to assess pt. CM to provide her a copy of Shirley Lyons note. After PASRR complete then CM can see if SNF placement can be secured. Date Signed: 05/16/2018 10:03 AM Electronically Signed By:BOYD Morgan [facility] CM Progress Note CM Note CM Note Notes: Maximilian with [facility] reports pt financially denied by Rachel. Date Signed: 05/16/2018 01:00 PM Electronically Signed By:BOYD Morgan [facility] CM Progress Note CM Note CM Note Notes: Stephy from the [facility] came today to evaluate pt's triggered PASSR Level II. No email response from her yet. Pt admitted for surgery to left femur fracture will need short term rehab in a SNF. Medicaid is pending. Pt not likely to discharge before Saturday. D/C Plan: SNF pending PASSR evaluation Date Signed: 05/17/2018 04:16 PM Electronically Signed By:Suzan Richardson [facility] CM Progress Note CM Note CM Note Notes: SNF placement still pending. Dwayne Fagan sent this CM pt's unsigned level II PASRR, this was attached to Allscripts and forwarded to SNFs. Will provide SNFs time to review. CM to follow. Date Signed: 05/19/2018 03:24 PM Electronically Signed By:BOYD Morgan [facility] CM Progress Note CM Note CM Note Notes: [facility] declined patient d/t Level II PASRR. Reached out to Fatimah at [facility] for further recommendations on facilities that may be able to accommodate. More facilities reviewing, CM will continue to follow for placement. Plan: SNF Date Signed: 05/20/2018 03:59 PM Electronically Signed By:Verenice Dao RN [facility] Progress Note CM Note CM Note Notes: Still no SNF placement. Several phone calls made to pending SNFs, had to leave voicemails for admissions staff. Numerous new SNF referrals sent in Allscripts all over [place]. Date Signed: 05/21/2018 01:17 PM Electronically Signed By:BOYD Morgan [facility] Progress Note CM Note CM Note Notes: 05/22/2018 Case Management Note. Discussion with Delilah from [facility]. Delilah considering acceptance if Level II PASRR is changed to time limited. Phone call to Dwayne Fagan, PASRR coordinator [phone]. Dwayne called Delilah and will discuss with members of her team if a change is appropriate for PASRR. Iraida Larkin [phone] visited pt this morning. Left vm with Chaya to discuss placement. Faxed referrals to additional SNFs and added in [facility]. Pt friend who identifies himself as Dr. Kodak Gilliam psychologist [phone] requested conversation with case management. Kodak is unwilling to participate in care of pt at d/c. Kodak was homeless himself decades ago and befriended pt at the [facility] in [place]. Discussed w/PT. PT to evaluate pt tomorrow for discharge needs. Provided donated w/c to pt for likely d/c to care home. Attempted to discuss discharge options with pt. Pt refuses reserved care home bed stating "only dirty people live there". Pt refused appointments at [facility], [facility] or [facility]. Encouraged pt to allow case management to reserve a care home bed, to complete [facility] and connect with assistant case manager at [facility] or the care home RN for continuing care. Pt declined stating he would know when his leg was healed. Updated Verenice Dao of efforts for placement today. Case Management d/c poc: to be determined, likely care home when medically stable. Case Management to follow. Date Signed: 05/22/2018 05:07 PM Electronically Signed By:Delphine Herbert RN [facility] Progress Note CM Note CM Note Notes: Pt d/cing today. Medications delivered to pt's room and paid for by CM. Pt being sent by [facility] to [facility] where CM has reserved a 5 night stay. Pt sent with food to eat this evening. He has been given 4 taxi vouchers which will allow him to go to [facility] tomorrow and to [facility] on Saturday. He can eat there both days. On Saturday [facility] will begin to deliver 2 meals per day through Saturday. Pt has an appt with his surgeon scheduled for Saturday at 2:00PM. He has been given taxi vouchers to both get to his appt and then to [facility]. Pt seemed pleased with the plan and expressed feeling taken care of. D/C Plan: [facility], [facility], [facility], [facility] Date Signed: 05/23/2018 04:18 PM Electronically Signed By:Deanne Luna Case Management Discharge Plan Note Case Management Discharge Discharge Order Complete? Answers: Yes Followup Appointment 05/30/2018 02:00 PM Patient to Obtain Answers: Other Notes: Taxi voucher Medications Transportation Arranged Answers: [facility] W/C Transport will Pick (Date 05/23/2018 04:00 PM & Time) Case Management Transport Answers: Yes Form Complete Discharge Comments Notes: Pt discharging to [facility] for 5 nights, paid for by . Pt discharging with medications and 6 taxi vouchers enabling him to get back and forth to [facility] this weekend and back and forth from his post-surgery appt next saturday at 2:00PM. [facility] [employer] [facility] will begin delivery of meals on Saturday and continue through Saturday. Pt transported to [facility] today by [facility]. Date Signed: 05/23/2018 04:21 PM Electronically Signed By:Deanne Luna Intervention Information
== END 2018-05-23 16:47 | disposition home or self-care (01) | DRG 482 ==
LOC: F3N 13:24
PROVIDERS: ADMIT Internal Medicine; ATTEND Internal Medicine
PROC: 0QSC04Z Reposition Left Lower Femur with Internal Fixation Device, Open Approach (ICD-10-PCS; principal; 2018-05-12)
DX: S72.402A Unspecified fracture of lower end of left femur, initial encounter for closed fracture (principal); W10.8XXA Fall (on) (from) other stairs and steps, initial encounter; K02.9 Dental caries, unspecified; F17.200 Nicotine dependence, unspecified, uncomplicated; Z59.0 Homelessness
CPT/HCPCS: 92523-GN; 96374; 97110-GP; 97116-GP; 97162-GP; 97164-GP; 97165-GO; 97530-GO; 97530-GP; 97535-GO; C1713; C1769; J0330; J0690; J1100; J1170; J1650; J1885; J2060; J2405; J2704; J3010; J3370; L1832; Q9967